=== PATIENT | female | born 1990 | race Two or more races ===

== ENCOUNTER 2017-09-12 18:07 | Emergency (ER) | payer SELFPAY ==
[2017-09-12 20:04] LABS: BASO # 0.1 x10^3/uL (0.0-0.2); BASO % 0 % (0-3); EOS % 0 % (0-3); HEMOGLOBIN 13.3 g/dL (12.0-15.5); LYMPH # 1.3 x10^3/uL (1.0-4.8); LYMPH % 7 % (24-48); MEAN CORPUSCULAR HEMOGLOBIN 30 pg (25-35); MEAN CORPUSCULAR HGB CONC 34 g/dL (31-37); MEAN CORPUSCULAR VOLUME 89 fL (79-100); MONO # 1.3 x10^3/uL (0.0-1.1); MONO % 7 % (0-9); NEUT # 17.2 x10^3uL (1.8-7.7); NEUT % 86 % (31-73); PLATELET COUNT 293 x10^3/uL (140-400); RED BLOOD COUNT 4.38 x10^6/uL (3.50-5.40); RED CELL DISTRIBUTION WIDTH 12.9 % (11.5-14.5)
[2017-09-12 20:05] LABS: ADD MAN DIFF? YES
[2017-09-12 20:12] LABS: ANION GAP 11 (6-14); BILIRUBIN,URINE NEGATIVE (NEG); BLOOD UREA NITROGEN 6 mg/dL (7-20); BUN/CREATININE RATIO 9 (6-20); CALCIUM 9.1 mg/dL (8.5-10.1); CARBON DIOXIDE 24 mmol/L (21-32); CHLORIDE 101 mmol/L (98-107); CLARITY,URINE CLEAR; COLOR,URINE YELLOW; CREATININE 0.7 mg/dL (0.6-1.0); GFR 101.1; GLUCOSE 129 mg/dL (70-99); GLUCOSE,URINE NEGATIVE (NEG); NITRITE,URINE NEGATIVE (NEG); PH,URINE 6.5; POTASSIUM 3.7 mmol/L (3.5-5.1); PROTEIN,URINE NEGATIVE (NEG-TRACE); SODIUM 136 mmol/L (136-145)
[2017-09-12] MEDS: IV NORMAL SALINE 1000ML BAG 1,000 ML IV ×2 (20:12→21:17)
[2017-09-12 20:13] LABS: URINE HCG POC HCG NEGATIVE (Negative)
[2017-09-12] MEDS: ACETAMINOPHEN 500 MG TABLET PO (20:13)
[2017-09-12] MEDS: ONDANSETRON PF 4 MG/2 ML VIAL. IV (20:14)
[2017-09-12 20:18] LABS: ALBUMIN 3.8 g/dL (3.4-5.0); ALBUMIN/GLOBULIN RATIO 0.9 (1.0-1.7); ALK PHOS 103 U/L (46-116); ALT (SGPT) 63 U/L (14-59); AST (SGOT) 22 U/L (15-37); BACTERIA,URINE FEW /HPF (0-FEW); SQUAMOUS EPITHELIAL CELL,UR MANY /LPF; TOTAL BILIRUBIN 0.4 mg/dL (0.2-1.0); TOTAL PROTEIN 8.1 g/dL (6.4-8.2)
[2017-09-12] MEDS: IOHEXOL 300 MG/ML 100ML VIAL. IV (20:30)
[2017-09-12] MEDS: IOHEXOL 240 MG/ML 50ML VIAL. PO (20:30)
[2017-09-12] MEDS ORDERED: CONTRAST GIVEN. MC (20:30)
[2017-09-12 20:44] LABS: % ATYL 4 % (0-0); % BANDS 18 % (0-9); % LYMPHS 4 % (24-48); % MONOS 6 % (0-10); % SEGS 68 % (35-66)
[2017-09-12 20:48] LABS: PLT ESTIMATE ADEQUATE (ADEQUATE)
[2017-09-12 21:00] LABS: MONONUCLEOSIS PATIENT NEGATIVE (NEGATIVE); NEGATIVE OBC MONO NEG; POSITIVE OBC MONO POS
[2017-09-12] MEDS: DEXAMETHASONE SOD PHOS 20 MG/5 ML VIAL. IV (21:15)
[2017-09-12] MEDS: PIPERACILLIN/TAZOBACTAM 4.5 GM in IV NORMAL SALINE 100ML 100 ML IV (21:16)
[2017-09-12] MEDS: IV NORMAL SALINE 500ML BAG 500 ML IV (21:18)
[2017-09-12] MEDS: fentaNYL PF VIAL 100 MCG/2 ML VIAL IV (21:30)
[2017-09-12 22:02] LABS: LACTIC ACID 0.9 mmol/L (0.4-2.0)
[2017-09-13 05:03] LABS: NEGATIVE OBC STREP NEG; POSITIVE OBC STREP POS
== END 2017-09-12 22:45 | disposition home or self-care (01) ==
LOC: ER 18:07
DX: N39.0 Urinary tract infection, site not specified (principal); J02.9 Acute pharyngitis, unspecified; R11.2 Nausea with vomiting, unspecified
CPT/HCPCS: 36415; 71046; 74177; 80053; 81001; 81025; 83605; 85007; 85025; 86308; 87070; 87086; 87880; 96361; 96365; 96375; 99285-25; J1100; J2405; J2543; J7030; J7040; Q9966; Q9967